=== PATIENT | female | born 2005 | race Caucasian/White ===

== ENCOUNTER 2024-09-25 22:37 | Emergency (ER) | payer SELFPAY ==
[~2024-09-25] VITALS: Ht 162.6 cm; Wt 40.2 kg
[~2024-09-25 22:37] MED LIST: CLIN-214 PO
[2024-09-25 23:08] VITALS: BP 106/67; PULSE 108; RESP 18; O2SAT 98
--- NOTE | 2024-09-26 01:36 | Physician Documentation ---
History of Present Illness ~ General Chief Complaint: Wound Stated Complaint: FOOT PAIN/ CONCERNS Time Seen by MD: 01:16 [facility] Exam Limitations: other (UNCOOPERATIVE WITH PROVIDING ANY HISTORY AND THOROUGH PHYSICAL EXAM) History of Present Illness Initial Comments Chief Complaint: I am tired Caveat: Independent Historians: History of Present Illness: Review of systems: All systems were reviewed and are negative except for what is indicated in the history of present illness. Past Medical History: Past Surgical History: Social History: Medications: Reviewed as documented Nursing Notes Allergies: Reviewed as documented in Nursing Notes Medication Reconciliation Allergies: Coded Allergies: amoxicillin (Verified Allergy, Unknown, 10/13/23) Scheduled Clindamycin HCl (Clindamycin HCl CAPSULE), 3 CAP PO TID Past Medical History Past Medical History: No Pertinent History Past Surgical History: no surgical history Last Menstrual Period: Aug 26, 2024 Alcohol Use: None Drug Use: none Lives with: Mother, Father Lives In: Home Occupation: child Review of Systems All Other Systems at this time: Reviewed and Negative ROS Patient denies any other acute symptoms other than above. All other systems are negative Physical Exam Physical Exam Vital Signs: RN Vital Signs have been reviewed: Yes, Temperature: 98.2, Heart Rate: 108, Respiratory Rate: 18, BP: 106/67, Pulse Oximetry: 98, Weight: 40.200 Pulse Oximetry Reflects: adequate oxygenation Physical Exam General Appearance: No distress HEENT: Normal OP, moist oral mucosa, PERRL, EOMI Neck: supple, normal ROM, trachea midline Pulmonary: No respiratory distress, CTA, BS equal Cardiac: RRR, no murmur, rub or gallop, GI: nondistended, soft, nontender, normal bowel sounds, no guarding, no rebound : Rectal: Back: Extremities: normal ROM, no swelling, non-tender Skin: intact, dry, warm, no rashes Neuro: AAOx3, speech is clear, no focal motor weakness Psych: normal affect, good eye contact, no apparent hallucination, normal speech Progress Results/Orders Results/Orders Vital Signs 09/25/24 23:08 Temp 98.2 Pulse 108 Resp 18 B/P (MAP) 106/67 Pulse Ox 98 Departure Time of Disposition: 01:35 Disposition: 01 HOME / SELF CARE / HOMELESS Impression: Primary Impression: Encounter for medical screening examination Condition: Stable Discharge Instructions: Medical Screening Exam Additional Instructions: FOLLOW UP WITH THE [facility] FOR YOUR MEDICAL CARE Referrals: [facility] Education Educated: Patient Educated regarding: diagnosis, treatment Signature Scribe Signature: NO SCRIBE Attestation: NO SCRIBE SERENA HENDRIX MD Sep 26, 2024 01:36
[2024-09-26 01:38] VITALS: TEMP 98.2
== END 2024-09-26 01:39 | disposition home or self-care (01) ==
LOC: ER 22:38
DX: Z00.8 Encounter for other general examination (principal); Z88.0 Allergy status to penicillin
CPT/HCPCS: 99282

== ENCOUNTER 2024-09-26 11:40 | Emergency (ER) | payer SELFPAY | END 2024-09-26 11:53 | disposition left against medical advice (07) | LOC: ER 11:41 | DX: M79.673 Pain in unspecified foot (principal); Z88.0 Allergy status to penicillin; Z53.21 Procedure and treatment not carried out due to patient leaving prior to being seen by health care provider ==